=== PATIENT | female | born 1995 | race Caucasian/White ===

== ENCOUNTER 2016-03-10 08:51 | Observation (INO) | payer OTHER, MEDICAID ==
[2016-03-10] VITALS (7 sets, daily range): BP systolic 98–130; BP diastolic 64–85; PULSE 56–75; RESP 18–21; TEMP 96.9–98; O2SAT 95–99
[~2016-03-10] VITALS: Ht 160 cm; Wt 84.0 kg
[~2016-03-10 08:51] MED LIST: IBUP600 PO; OXYC1SOL5 PO; PERI8.6T PO
[2016-03-10] MEDS ORDERED: SODIUM CHLOR 0.9% 1000 ML INJ 1,000 ML IV SCH (09:06)
--- NOTE | 2016-03-10 09:09 | PD ---
HPI Chief Complaint: pelvic pain Time Seen by Provider: 09:00 Travel History International Travel<30 days: No Contact w/Intl Traveler<30days: No History of Present Illness HPI This is a 21-year-old female who presents to the emergency department with lower abdominal pain that's been present and worsening for the past 2 days, constant, severe feeling like a cramping in her lower abdomen. She said initially she felt some pain in her right thigh and then it's been progressing from the right side to involve her entire lower abdomen to the point where she cannot walk. She denies any nausea or vomiting. She has felt chills but denies any fever. She denies any dysuria, urgency, frequency, vaginal discharge or diarrhea. She did just recently have her menstrual cycle. She's had one sexual partner in the past 6 months. PFSH Past Medical History Diminished Hearing: No Immunizations Current: Yes Menopausal: Yes : 1 Para: 1 Past Surgical History Section: Yes (05/24/12) Social History Alcohol Use: No Tobacco Use: Yes Substance Use: No Allergies-Medications (Allergen,Severity, Reaction): Coded Allergies: No Known Allergies (Verified , 03/10/16) Reported Meds & Prescriptions Reported Meds & Active Scripts Active No Active Prescriptions or Reported Medications Review of Systems Except as stated in HPI: all other systems reviewed are Neg Physical Exam Narrative GENERAL: Uncomfortable appearing. SKIN: Warm and dry. HEAD: Atraumatic. Normocephalic. EYES: Pupils equal and round. No injection or drainage. ENT: Moist mucous membranes NECK: Trachea midline. CARDIOVASCULAR: Regular rate and rhythm. No murmur appreciated. RESPIRATORY: Clear to auscultation. Breath sounds equal bilaterally. GASTROINTESTINAL: Abdomen soft, tender to palpation in the lower abdomen with guarding, right worse than left. MUSCULOSKELETAL: No obvious deformities. NEUROLOGICAL: Awake and alert. No obvious cranial nerve deficits. Moving all extremities. PSYCHIATRIC: Appropriate mood and affect; insight and judgment normal. Data Data Last Documented VS Vital Signs Date Time Temp Pulse Resp B/P Pulse Ox O2 Delivery O2 Flow Rate FiO2 03/10/16 12:30 75 20 122/64 97 Room Air 03/10/16 08:54 97.8 Orders Complete Blood Count With Diff (03/10/16 09:06) Comprehensive Metabolic Panel (03/10/16 09:06) Lipase (03/10/16 09:06) Urinalysis - C+S If Indicated (03/10/16 09:06) Ct Abd/Pel W Iv Contrast(Rout) (03/10/16 09:06) Iv Access Insert/Monitor (03/10/16 09:06) Ecg Monitoring (03/10/16 09:06) Oximetry (03/10/16 09:06) Morphine Inj (Morphine Inj) (03/10/16 09:15) Sodium Chlor 0.9% 1000 Ml Inj (Ns 1000 M (03/10/16 09:06) Sodium Chloride 0.9% Flush (Ns Flush) (03/10/16 09:15) Ed Urine Pregnancytest Poc (03/10/16 09:06) Wet Prep Profile (03/10/16 09:19) Gc And Chlamydia Pcr (03/10/16 09:19) Ondansetron Inj (Zofran Inj) (03/10/16 09:32) Iohexol 350 Inj (Omnipaque 350 Inj) (03/10/16 10:03) Us Pelvis Comp W Dop Transvag (03/10/16 ) Hydromorphone Pf Inj (Dilaudid Pf Inj) (03/10/16 12:30) Labs Laboratory Tests Test 03/10/16 03/10/16 09:20 10:30 White Blood Count 10.4 TH/MM3 Red Blood Count 4.84 MIL/MM3 Hemoglobin 13.9 GM/DL Hematocrit 40.1 % Mean Corpuscular Volume 83.0 FL Mean Corpuscular Hemoglobin 28.7 PG Mean Corpuscular Hemoglobin 34.6 % Concent Red Cell Distribution Width 12.7 % Platelet Count 253 TH/MM3 Mean Platelet Volume 7.7 FL Neutrophils (%) (Auto) 68.7 % Lymphocytes (%) (Auto) 22.7 % Monocytes (%) (Auto) 6.4 % Eosinophils (%) (Auto) 1.5 % Basophils (%) (Auto) 0.7 % Neutrophils # (Auto) 7.1 TH/MM3 Lymphocytes # (Auto) 2.4 TH/MM3 Monocytes # (Auto) 0.7 TH/MM3 Eosinophils # (Auto) 0.2 TH/MM3 Basophils # (Auto) 0.1 TH/MM3 CBC Comment DIFF FINAL Differential Comment Urine Color YELLOW Urine Turbidity CLOUDY Urine pH 8.0 Urine Specific [place] 1.023 Urine Protein TRACE mg/dL Urine Glucose (UA) NEG mg/dL Urine Ketones NEG mg/dL Urine Occult Blood NEG Urine Nitrite NEG Urine Bilirubin NEG Urine Urobilinogen LESS THAN 2.0 MG/DL Urine Leukocyte Esterase TRACE Urine WBC 2 /hpf Urine Squamous Epithelial 6 /hpf Cells Urine Amorphous Sediment MOD Microscopic Urinalysis Comment CULT NOT INDICATED Sodium Level 138 MEQ/L Potassium Level 4.1 MEQ/L Chloride Level 105 MEQ/L Carbon Dioxide Level 25.2 MEQ/L Anion Gap 8 MEQ/L Blood Urea Nitrogen 9 MG/DL Creatinine 0.83 MG/DL Estimat Glomerular Filtration 85 ML/MIN Rate Random Glucose 98 MG/DL Calcium Level 8.9 MG/DL Total Bilirubin 0.4 MG/DL Aspartate Amino Transf 58 U/L (AST/SGOT) Alanine Aminotransferase 114 U/L (ALT/SGPT) Alkaline Phosphatase 109 U/L Total Protein 7.8 GM/DL Albumin 3.5 GM/DL Lipase 88 U/L Clue Cells (Wet Prep) NONE SEEN Vaginal Trichomonas (Wet Prep) NONE SEEN Vaginal Yeast (Wet Prep) NONE SEEN MDM Medical Decision Making Medical Screen Exam Complete: Yes Emergency Medical Condition: Yes Interpretation(s) Afebrile, no tachycardia, normotensive No leukocytosis Electrolytes reassuring Urinalysis: No infection Wet prep is negative CT abdomen and pelvis: Mild prominence of the appendix without inflammatory changes Differential Diagnosis Acute appendicitis, ovarian cyst rupture, pelvic inflammatory disease, ovarian torsion, urinary tract infection Narrative Course This is a 21-year-old female who presents to the emergency department with lower abdominal pain that started yesterday and has been progressing. She's not had any vomiting. She denies any fever. She is placed on a monitor and an IV was established. Labs are obtained which are reassuring with no leukocytosis. Urinalysis demonstrates no infection. Pelvic exam was unremarkable. Pelvic ultrasound demonstrates some flea fluid in the right adnexa. I suspect the patient had a ruptured ovarian cyst. I don't think she has appendicitis given the absence of other symptoms and her reassuring blood work. I did discuss the possibility with the patient and she if her symptoms worsen, if she develops vomiting or fever she should return to the emergency department immediately. Diagnosis Primary Impression: Pelvic pain Patient Instructions: General Instructions Additional Instructions: If you develop severe or worsening abdominal pain, fever>100.4, persistent vomiting or inability to eat or drink return to the emergency department immediately. Follow up with your primary care physician in 1-2 days for a check-up. Med/Other Pt SpecificInfo: Prescription(s) given Scripts Tramadol 50 Mg Tab50 Mg PO Q6H PRN (PAIN) 10 Days Ref 0 Prov:Kae Rossi MD 03/10/16 Disposition: 01 DISCHARGE HOME Condition: Stable Kae Rossi MD Mar 10, 2016 09:09
[2016-03-10] MEDS ORDERED: MORPHINE SULFATE 4 MG/ML INJ IV PUSH ONE (09:15)
[2016-03-10] MEDS ORDERED: SODIUM CHLORIDE 0.9% FLUSH 5 ML FLUSH IVF PRN (09:15)
[2016-03-10] MEDS ORDERED: ONDANSETRON HCL 4 MG/2 ML VIAL ONE (09:32)
[2016-03-10 09:37] LABS: AUTOMATED NEUTROPHIL # 7.1 TH/MM3 (1.8-7.7); BASOPHIL # 0.1 TH/MM3 (0-0.2); BASOPHIL % 0.7 % (0.0-2.0); EOSINOPHIL # 0.2 TH/MM3 (0-0.4); EOSINOPHIL % 1.5 % (0.0-4.0); HEMATOCRIT 40.1 % (35.0-46.0); HEMO FLAGS DIFF FINAL; LYMPH % 22.7 % (9.0-44.0); LYMPHOCYTE # 2.4 TH/MM3 (1.0-4.8); MEAN CORPUSCULAR HEMOGLOBIN 28.7 PG (27.0-34.0); MEAN CORPUSCULAR HGB CONC 34.6 % (32.0-36.0); MONO % 6.4 % (0.0-8.0); NEUT % 68.7 % (16.0-70.0); PLATELET COUNT 253 TH/MM3 (150-450); RED BLOOD COUNT 4.84 MIL/MM3 (4.00-5.30); RED CELL DISTRIBUTION WIDTH 12.7 % (11.6-17.2); WHITE BLOOD COUNT 10.4 TH/MM3 (4.0-11.0)
[2016-03-10 09:44] LABS: BLOOD, URINE NEG (NEG); GLUCOSE,URINE NEG (NEG); KETONE, URINE NEG (NEG); NITRITE,URINE NEG (NEG); SQUAMOUS EPITHELIAL CELL URINE 6 /hpf (0-5); URINE COLOR YELLOW (YELLW/STRAW)
[2016-03-10 09:45] LABS: COMMENT (UR) CULT NOT INDICATED; CULTURE IF INDICATED CULT NOT INDICATED
[2016-03-10 09:58] LABS: ANION GAP 8 MEQ/L (5-15); AST (GOT) 58 U/L (15-37); BICARBONATE 25.2 MEQ/L (21.0-32.0); BLOOD UREA NITROGEN 9 MG/DL (7-18); CHLORIDE 105 MEQ/L (98-107); GLOMERULAR FILTRATION RATE 85 ML/MIN (>89); POTASSIUM 4.1 MEQ/L (3.5-5.1); SODIUM (NA) 138 MEQ/L (136-145)
[2016-03-10 10:01] LABS: ALKALINE PHOSPHATASE 109 U/L (45-117); ALT (GPT) 114 U/L (10-53); TOTAL BILIRUBIN ADULT 0.4 MG/DL (0.2-1.0)
[2016-03-10] MEDS ORDERED: IOHEXOL 350 MG/ML 10 ML VIAL (for RAD DIAG) IV ONE (10:03)
--- NOTE | 2016-03-10 10:21 | RADRPT ---
EXAM DATE/TIME: 03/10/2016 10:01 [facility] COMPARISON: No previous studies available for comparison. INDICATIONS: Lower abdominal pain for two days, mostly right sided. IV CONTRAST: 85 cc Omnipaque 350 (iohexol) IV ORAL CONTRAST: No oral contrast ingested. RADIATION DOSE: 12.59 CTDIvol (mGy) MEDICAL HISTORY: None SURGICAL HISTORY: section. ENCOUNTER: Initial ACUITY: 2 days PAIN SCALE: 8/10 LOCATION: Right lower quadrant TECHNIQUE: Volumetric scanning of the abdomen and pelvis was performed. Using automated exposure control and ad justment of the mA and/or kV according to patient size, radiation dose was kept as low as reasonably achievable to obtain optimal diagnostic quality images. FINDINGS: Lung bases are clear. Liver is free of focal defects. Spleen, pancreas, adrenals and gallbladder ar e unremarkable. There is symmetrical renal function. In the region of the cecum the appendix is identified. There is very mild prominence to the appendix measuring 8 mm without obvious inflammatory changes evident. Uterus is prominent. Small cystic areas are seen in both adnexal regions. There is no free fluid. CONCLUSION: 1. Mild prominence of the appendix without inflammatory changes. Appendicitis is thought to be less likely. 2. I do not see an etiology for the patient's abdominal pain. Wali Cancino MD FACR on March 10, 2016 at 10:10 Board Certified Radiologist. This report was verified electronically.
--- NOTE | 2016-03-10 12:29 | RADRPT ---
EXAM DATE/TIME: 03/10/2016 10:51 [facility] COMPARISON: None. INDICATIONS : Pelvic pain. MEDICAL HISTORY : Pelvic pain. SURGICAL HISTORY : section. ENCOUNTER: Subsequent ACUITY: 2 days PAIN SCORE: 5/10 LOCATION: Bilateral pelvis MEASUREMENTS: UTERUS: 7.4 x 3.5 x 5.3 cm ENDOMETRIAL STRIPE: 4 mm RIGHT OVARY: 3.4 x 2.0 x 3.0 cm LEFT OVARY: 3.2 x 2.8 x 2.3 cm FINDINGS: UTERUS: The myometrium has homogeneous echotexture without mass. RIGHT OVARY: Ovary contains no mass or significant cystic lesion. A benign-appearing 9 x 6 x 8 mm follicular type cyst identified. LEFT OVARY: Ovary contains no mass or significant cystic lesion. MISCELLANEOUS: Free fluid predominantly in the right adnexal region. CONCLUSION: 1. Physiologic free fluid predominantly in the right adnexal region. 2. Otherwise negative. Javi Winston MD Board Certified Radiologist. This report was verified electronically.
[2016-03-10] MEDS ORDERED: HYDROmorphone HCL PF 1 MG/ML VIAL IV PUSH ONE ×3 (12:30→15:30)
[2016-03-10] MEDS ORDERED: TRAM50TA PO (12:38)
[2016-03-10 13:24] LABS: CHLAMYDIA PCR NOT DETECTED (NOT DETECT); NEISSERIA PCR NOT DETECTED (NOT DETECT)
--- NOTE | 2016-03-10 14:39 | HHI.HP ---
[facility] Service Family Medicine Primary Care Physician No Primary Care Physician Admission Diagnosis abdominal pain Diagnoses: International Travel<30 Days: No Contact w/Intl Traveler<30days: No Known Affected Area: No History of Present Illness Patient is a 21yo female who presented here today for lower abdominal pain. Symptoms started yesterday morning on her inner thighs and felt like soreness that then progressed to lower abdominal pain that was sharp. Worsened with movement and associated with pressure. She has never experience an episode like this. Pain is always present. No associated nausea/vomiting, fever/chills , dysuria, dyspareunia, vaginal discharge, vaginal bleeding, vaginal itchiness. Denies a concern for STD. She does endorse feeling hungry. Review of Systems Constitutional: DENIES: Fever, Chills, Change in appetite Ears, nose, mouth, throat: DENIES: Throat pain, Running Nose Respiratory: DENIES: Sputum production, Shortness of breath Cardiovascular: DENIES: Chest pain, Palpitations, Dyspnea on Exertion, Lower Extremity Edema Gastrointestinal: COMPLAINS OF: Abdominal pain, DENIES: Diarrhea, Nausea, Vomiting Genitourinary: DENIES: Abnormal vaginal bleeding, Dysmenorrhea, Hematuria, Dysuria, Vaginal discharge Musculoskeletal: DENIES: Joint Swelling Integumentary: DENIES: Rash Neurologic: DENIES: Headache, Localized weakness Past Family Social History Past Medical History Toothache, currently on amoxicillin Past Surgical History 2 Reported Medications Reported Meds & Active Scripts Active Tramadol (Tramadol HCl) 50 Mg Tab 50 Mg PO Q6H PRN 10 Days Allergies: Coded Allergies: No Known Allergies (Verified , 03/10/16) Family History Mother: from cirrhosis Father: Unknown Sister and grandmother with diabetes Social History Lives with daughter and boyfriend Tobacco: Half pack per day 10 years Alcohol: Socially, no history of withdrawal Illicit: Marijuana since age 13 or 14 Physical Exam Vital Signs Vital Signs Date Time Temp Pulse Resp B/P Pulse Ox O2 Delivery O2 Flow Rate FiO2 03/10/16 12:30 75 20 122/64 97 Room Air 03/10/16 09:40 58 20 98 Room Air 03/10/16 08:54 97.8 74 20 114/85 95 Room Air Physical Exam GENERAL: This is a well-nourished, well-developed patient, in no apparent distress. SKIN: No rashes, ecchymoses or lesions. Cool and dry. EYES: Pupils equal round and reactive. Extraocular motions intact. No scleral icterus. No injection or drainage. ENT: Nose without bleeding, purulent drainage. Throat without erythema, tonsillar hypertrophy or exudate. Uvula midline. Airway patent. NECK: No lymphadenopathy. Supple, nontender, no meningeal signs. CARDIOVASCULAR: Regular rate and rhythm without murmurs, gallops, or rubs. RESPIRATORY: Late expiratory wheezes bilaterally. Good air movement bilaterally. No rubs or crackles. GASTROINTESTINAL: Abdomen soft, nondistended. Suprapubic tenderness. No rebound tenderness. Gómez's sign negative. No hepato-splenomegaly, or palpable masses. No guarding. MUSCULOSKELETAL: Extremities without clubbing, cyanosis, or edema. No joint tenderness, effusion, or edema noted. No calf tenderness. NEUROLOGICAL: Awake and alert. Motor and sensory grossly within normal limits. Five out of 5 muscle strength in all muscle groups. Normal speech. Laboratory Laboratory Tests Test 03/10/16 03/10/16 09:20 10:30 White Blood Count 10.4 Red Blood Count 4.84 Hemoglobin 13.9 Hematocrit 40.1 Mean Corpuscular Volume 83.0 Mean Corpuscular Hemoglobin 28.7 Mean Corpuscular Hemoglobin 34.6 Concent Red Cell Distribution Width 12.7 Platelet Count 253 Mean Platelet Volume 7.7 Neutrophils (%) (Auto) 68.7 Lymphocytes (%) (Auto) 22.7 Monocytes (%) (Auto) 6.4 Eosinophils (%) (Auto) 1.5 Basophils (%) (Auto) 0.7 Neutrophils # (Auto) 7.1 Lymphocytes # (Auto) 2.4 Monocytes # (Auto) 0.7 Eosinophils # (Auto) 0.2 Basophils # (Auto) 0.1 CBC Comment DIFF FINAL Differential Comment Urine Color YELLOW Urine Turbidity CLOUDY Urine pH 8.0 Urine Specific [place] 1.023 Urine Protein TRACE Urine Glucose (UA) NEG Urine Ketones NEG Urine Occult Blood NEG Urine Nitrite NEG Urine Bilirubin NEG Urine Urobilinogen LESS THAN 2.0 Urine Leukocyte Esterase TRACE Urine WBC 2 Urine Squamous Epithelial 6 Cells Urine Amorphous Sediment MOD Microscopic Urinalysis Comment CULT NOT INDICATED Sodium Level 138 Potassium Level 4.1 Chloride Level 105 Carbon Dioxide Level 25.2 Anion Gap 8 Blood Urea Nitrogen 9 Creatinine 0.83 Estimat Glomerular Filtration 85 Rate Random Glucose 98 Calcium Level 8.9 Total Bilirubin 0.4 Aspartate Amino Transf 58 (AST/SGOT) Alanine Aminotransferase 114 (ALT/SGPT) Alkaline Phosphatase 109 Total Protein 7.8 Albumin 3.5 Lipase 88 Clue Cells (Wet Prep) NONE SEEN Vaginal Trichomonas (Wet Prep) NONE SEEN Vaginal Yeast (Wet Prep) NONE SEEN Chlamydia trachomatis DNA NOT DETECTED (PCR) Neisseria gonorrhoeae DNA NOT DETECTED (PCR) Result Diagram: 03/10/1691903/10/16919 Imaging Last Impressions Abdomen/Pelvis CT 03/10/16 0906 Signed Impressions: Service Date/Time: Thursday, March 10, 2016 10:01 - CONCLUSION: 1. Mild prominence of the appendix without inflammatory changes. Appendicitis is thought to be less likely. 2. I do not see an etiology for the patient's abdominal pain. Wali Cancino MD FACR Abdomen/Pelvis/Transvag US 03/10/16 0000 Signed Impressions: Service Date/Time: Thursday, March 10, 2016 10:51 - CONCLUSION: 1. Physiologic free fluid predominantly in the right adnexal region. 2. Otherwise negative. Javi Winston MD Assessment and Plan Assessment and Plan 21yo female with no significant PMH admitted for uncontrolled abdominal pain. Code Status full Discussed Condition With dw Dr. Swenson and Dr. Zaman Problem List: (1) Abdominal pain Status: Acute Plan: Acute onset suprapubic abdominal pain that has progressively worsened since yesterday. Not associated with any other symptoms. Vital signs reassuring and patient afebrile. No leukocytosis present. Etiology unclear but appears to be benign at this time. DDX includes ruptured cyst vs appendicitis vs PID vs cholecystitis vs pancreatitis -CBC, UA, GC and Chlamydia, wet prep negative -CMP unremarkable with exception of a slightly elevated liver enzymes. * repeat CMP Surgery consulted: appreciate recommendations. * closely monitor. No surgical intervention at this time Imaging: * Pelvic US: Physiologic free fluid predominantly in the right adnexal region. Otherwise negative * Abdominal CT: Mild prominence of the appendix without inflammatory changes. Appendicitis is thought to be less likely. No clear etiology of abdominal pain. Medications: * Dilaudid 0.5mg IV q3 breakthrough stopped and switched to Toradol * [place] 5's * Protonix in case abdominal pain is related to indigestion (2) Nutrition, metabolism, and development symptoms Status: Acute Plan: Diet: Clear liquids Electrolytes: Unremarkable, continue to monitor Fluids: NS at 100 DVT prophylaxis: SCDs as patient may go back for surgery GI prophylaxis: Protonix Kika Sweeney MD R2 Mar 10, 2016 14:39
[2016-03-10] MEDS ORDERED: ENALAPRILAT 1.25 MG/ML VIAL IV PRN (15:30)
[2016-03-10] MEDS ORDERED: SODIUM CHLORIDE 0.9% FLUSH 5 ML FLUSH FLUSH PRN (15:30)
[2016-03-10] MEDS ORDERED: NALOXONE HCL 0.4 MG/ML AMP IV PRN ×2 (15:30)
[2016-03-10] MEDS ORDERED: ACETAMINOPHEN 325 MG TAB PO PRN (15:30)
[2016-03-10] MEDS ORDERED: ACETAMINOPHEN/HYDROcodone 325 MG/5 MG TAB PO PRN (15:30)
[2016-03-10] MEDS: SODIUM CHLOR 0.9% 1000 ML INJ 1,000 ML IV SCH (15:43)
[2016-03-10] MEDS ORDERED: ONDANSETRON HCL 4 MG/2 ML VIAL IVP PRN (16:00)
[2016-03-10] MEDS: ACETAMINOPHEN/HYDROcodone 325 MG/10 MG TAB PO PRN ×2 (18:14→23:11)
[2016-03-10] MEDS: SODIUM CHLORIDE 0.9% FLUSH 5 ML FLUSH FLUSH SCH (20:28)
[2016-03-10] MEDS: HYDROmorphone HCL PF 1 MG/ML VIAL IV PRN (20:37)
[2016-03-11 00:03] VITALS: BP 106/66; PULSE 67; RESP 18; TEMP 98.7; O2SAT 97
[2016-03-11] MEDS: SODIUM CHLOR 0.9% 1000 ML INJ 1,000 ML IV SCH ×3 (01:30→22:25)
[2016-03-11] MEDS: ACETAMINOPHEN/HYDROcodone 325 MG/10 MG TAB PO PRN (02:50)
[2016-03-11 04:30] VITALS: BP 111/66; PULSE 53; RESP 18; TEMP 98; O2SAT 97
[2016-03-11 04:40] LABS: BASOPHIL % 0.4 % (0.0-2.0); EOSINOPHIL # 0.2 TH/MM3 (0-0.4); EOSINOPHIL % 2.2 % (0.0-4.0); HEMATOCRIT 35.3 % (35.0-46.0); HEMO FLAGS DIFF FINAL; LYMPH % 39.8 % (9.0-44.0); LYMPHOCYTE # 3.2 TH/MM3 (1.0-4.8); MEAN CORPUSCULAR HEMOGLOBIN 28.6 PG (27.0-34.0); MONO % 8.6 % (0.0-8.0); PLATELET COUNT 212 TH/MM3 (150-450); RED CELL DISTRIBUTION WIDTH 13.1 % (11.6-17.2); WHITE BLOOD COUNT 8.1 TH/MM3 (4.0-11.0)
[2016-03-11] MEDS: HYDROmorphone HCL PF 1 MG/ML VIAL IV PRN (04:46)
[2016-03-11 05:18] LABS: BICARBONATE 29.6 MEQ/L (21.0-32.0)
[2016-03-11 07:24] LABS: INDIRECT BILIRUBIN 0.2 MG/DL (0.0-0.8); TOTAL BILIRUBIN ADULT 0.3 MG/DL (0.2-1.0)
[2016-03-11] MEDS: SODIUM CHLORIDE 0.9% FLUSH 5 ML FLUSH FLUSH SCH ×2 (08:09→22:25)
--- NOTE | 2016-03-11 08:18 | HHI.FPPN ---
Subjective Remarks Patient seen and examined this am. She is tolerating her diet, wants it to be advanced. She reports some improvement in abd pain. Denies N/V. Ambulatory without issues. Objective Vitals Vital Signs Date Time Temp Pulse Resp B/P Pulse Ox O2 Delivery O2 Flow Rate FiO2 03/11/16 04:30 98.0 53 18 111/66 97 03/11/16 03:50 16 03/11/16 00:03 98.7 67 18 106/66 97 03/10/16 21:50 14 03/10/16 20:52 98.0 60 21 98/65 95 03/10/16 17:25 96.9 60 18 130/73 97 03/10/16 17:10 62 20 114/71 98 03/10/16 15:20 56 20 113/80 99 Room Air 03/10/16 12:30 75 20 122/64 97 Room Air 03/10/16 09:40 58 20 98 Room Air 03/10/16 08:54 97.8 74 20 114/85 95 Room Air I/O 03/10/16 03/10/16 03/10/16 03/11/16 03/11/16 03/11/16 07:00 15:00 23:00 07:00 15:00 23:00 Intake Total 240 ml Balance 240 ml Intake Oral 240 ml # Voids 2 Result Diagram: 03/11/16 0416 03/11/16 0416 Imaging Last Impressions Abdomen/Pelvis CT 03/10/16 0906 Signed Impressions: Service Date/Time: Thursday, March 10, 2016 10:01 - CONCLUSION: 1. Mild prominence of the appendix without inflammatory changes. Appendicitis is thought to be less likely. 2. I do not see an etiology for the patient's abdominal pain. Wali Cancino MD FACR Abdomen/Pelvis/Transvag US 03/10/16 0000 Signed Impressions: Service Date/Time: Thursday, March 10, 2016 10:51 - CONCLUSION: 1. Physiologic free fluid predominantly in the right adnexal region. 2. Otherwise negative. Javi Winston MD Objective Remarks GENERAL: This is a well-nourished, well-developed patient, in no apparent distress. SKIN: No rashes, ecchymoses or lesions. Cool and dry. EYES: Pupils equal round and reactive. Extraocular motions intact. No scleral icterus. No injection or drainage. ENT: Nose without bleeding, purulent drainage. Throat without erythema, tonsillar hypertrophy or exudate. Uvula midline. Airway patent. NECK: No lymphadenopathy. Supple, nontender, no meningeal signs. CARDIOVASCULAR: Regular rate and rhythm without murmurs, gallops, or rubs. RESPIRATORY: Good air movement bilaterally. No rubs or crackles. GASTROINTESTINAL: Abdomen soft, nondistended. Suprapubic tenderness. that is pretty significant but appears unchanged from yesterday. No rebound tenderness. Gómez's sign negative. No hepato-splenomegaly, or palpable masses. No guarding. PELVIC: no vaginal abnormalities seen, cervix visualized, it is non friable and normal in appearance. There is a significant amount of non odorous discharge. There is no cervical motion or uterine tenderness. There does appear to be some adnexal tenderness bilat, left worse than right MUSCULOSKELETAL: Extremities without clubbing, cyanosis, or edema. No joint tenderness, effusion, or edema noted. No calf tenderness. NEUROLOGICAL: Awake and alert. Motor and sensory grossly within normal limits. Five out of 5 muscle strength in all muscle groups. Normal speech. Pelvic Exam: A/P Assessment and Plan 21yo female with no significant PMH admitted for uncontrolled abdominal pain. Discharge Planning D/C pending clinical improvement Patient seen with Dr. Swenson, Dr. Chang, Dr. Zaman Problem List: (1) Abdominal pain Status: Acute Plan: Acute onset suprapubic abdominal pain that is essentially unchanged from yesterday. DDX includes ruptured cyst vs appendicitis vs PID vs cholecystitis vs pancreatitis -PID now higher on the differential. Exam was concerning for some adenexal tenderness. The patients RF for PID include <25yo, significant discharge, onset shortly after menses. Will treat accordingly -UA negative, GC and Chlamydia negative, wet prep negative -CMP unremarkable with exception of a slightly elevated liver enzymes. * repeat CMP improved Surgery consulted: appreciate recommendations. * closely monitor. No surgical intervention at this time Imaging: * Pelvic US: Physiologic free fluid predominantly in the right adnexal region. Otherwise negative * Abdominal CT: Mild prominence of the appendix without inflammatory changes. Appendicitis is thought to be less likely. No clear etiology of abdominal pain. Medications: * Cefotoxitin 2 g IV q6 hrs, doxycycline 100 mg PO BID * Toradol * [place] 5's * Protonix in case abdominal pain is related to indigestion (2) Nutrition, metabolism, and development symptoms Status: Acute Plan: Diet: regular diet as tolerated Electrolytes: Unremarkable, continue to monitor Fluids: NS at 100 DVT prophylaxis: SCDs GI prophylaxis: not indicated at this time Lashon Rizvi MD R3 Mar 11, 2016 08:18
[2016-03-11 08:22] VITALS: BP 122/73; PULSE 48; RESP 18; TEMP 97.1; O2SAT 96
--- NOTE | 2016-03-11 08:23 | HHI.DCPOC ---
Discharge Care Plan Diagnosis: (1) Pelvic pain Goals to Promote Your Health * To prevent worsening of your condition and complications * To maintain your health at the optimal level Directions to Meet Your Goals Take your medications as prescribed Follow your dietary instruction Follow activity as directed Keep your appointments as scheduled Take your immunizations and boosters as scheduled If your symptoms worsen call your PCP, if no PCP go to Urgent Care Center or Emergency Room Smoking is Dangerous to Your Health. Avoid second hand smoke Call the 24-hour hour crisis hotline for domestic abuse at Lashon Rizvi MD R3 Mar 11, 2016 08:23
[2016-03-11] MEDS: NICOTINE 14 MG/24 HR PATCH TD SCH (08:36)
[2016-03-11] MEDS: KETOROLAC TROMETHAMINE 30 MG/ML (IVP) VIAL IV PUSH PRN ×3 (08:36→22:25)
[2016-03-11] MEDS ORDERED: PANTOPRAZOLE SOD 40 MG DELAYED RELEASE TAB PO SCH (09:00)
--- NOTE | 2016-03-11 10:19 | MB ---
cc: ANALISABLAKEPAULINO DATE OF CONSULTATION 03/10/[address] Jah Swenson REASON FOR CONSULTATION Abdominal pain, rule out appendicitis. HISTORY OF PRESENT ILLNESS Patient is a 21-year-old female who two days ago experienced a relatively quick onset of pelvic pain felt kind of on the inner side of both upper thighs that got worse severely over the next 24 hours. The patient had severe 10/10 pain, although denied any nausea, vomiting, diarrhea, constipation, fevers, chills, night sweats or any other associated complaints. The pain is described as a band across her lower abdomen and her pelvis without radiation and constant pain. The patient was seen and evaluated by [facility] emergency department and was found to likely have a ruptured ovarian cyst. Transvaginal ultrasound, however, and a CT scan of the abdomen and pelvis was also performed and the appendix was found to be within normal limits, but the upper limits of normal. General surgery was asked to see the patient for consideration of possible appendicitis. REVIEW OF SYSTEMS A 12-point review of systems was conducted with the patient and is negative except for the pertinent positives mentioned above in the history present illness. PAST MEDICAL HISTORY None PAST SURGICAL HISTORY ALLERGIES NO KNOWN DRUG ALLERGIES. MEDICATIONS None SOCIAL HISTORY The patient uses tobacco. Denies alcohol or illicit drug use. FAMILY HISTORY Noncontributory PHYSICAL EXAM VITAL SIGNS: Temperature 96.9, heart rate 60, respiratory rate 18, blood pressure 130/73, O2 saturation 97%. GENERAL: The patient is a well-developed, well-nourished female in no acute distress. HEAD: Normocephalic, atraumatic. EYES: Pupils round and reactive to accommodation and light. Sclerae is anicteric. EARS, NOSE, AND THROAT: Mucous membranes are moist. NECK: Supple. No JVD. LUNGS: Clear to auscultation bilaterally. Nonlabored breathing pattern. HEART: Regular rhythm. No murmurs. ABDOMEN: Soft, tender to palpation bilateral lower quadrants and suprapubic area with no focal tenderness. The patient is not tender over McBurney's point. The patient does have pain more with left leg manipulation than right leg manipulation. No right upper quadrant pain. Negative Gómez sign. No hernias. BACK: No CVA tenderness. EXTREMITIES: No clubbing, cyanosis or edema. NEUROLOGIC: Patient is awake, alert appropriate moving all extremities nonfocally and cranial nerves II-XII are grossly intact. LABORATORY VALUES White blood cell count 10.0, hemoglobin 13.9. ASSESSMENT/PLAN The patient is a 21-year-old female with two days of severe pelvic pain, suprapubic on the left side with CT scan of the appendix upper limits of normal with no associated inflammation and a normal white blood cell count. In my clinical opinion, the patient is very unlikely to have acute appendicitis and due to her severe pain with no other symptoms and her relatively normal appendix on a scan, this likely represents blood for a ruptured cyst which would present exactly like this. I do think it is reasonable for admission and observation and serial abdominal examinations and if the patient were to develop a clinical presentation more concerning for infection or appendicitis, I would recommend diagnostic lap, fluoroscopy and appendectomy at that time. The patient agrees to this plan and we will follow along with this patient. Thank you very much this consultation. MD ABDULAZIZ Gamez/SHANNEN /8:18 PM /10:03 AM
[2016-03-11 12:37] VITALS: BP 161/102; PULSE 55; RESP 18; TEMP 97.8; O2SAT 95
--- NOTE | 2016-03-11 12:42 | HHI.PR ---
Subjective Subjective Notes Resting in bed Wants regular food Objective Vitals/I&O Vital Signs Date Time Temp Pulse Resp B/P Pulse Ox O2 Delivery O2 Flow Rate FiO2 03/11/16 12:37 97.8 55 18 161/102 95 03/10/16 15:20 Room Air Labs Laboratory Tests Test 03/11/16 04:16 White Blood Count 8.1 Red Blood Count 4.20 Hemoglobin 12.0 Hematocrit 35.3 Mean Corpuscular Volume 84.0 Mean Corpuscular Hemoglobin 28.6 Mean Corpuscular Hemoglobin 34.0 Concent Red Cell Distribution Width 13.1 Platelet Count 212 Mean Platelet Volume 7.7 Neutrophils (%) (Auto) 49.0 Lymphocytes (%) (Auto) 39.8 Monocytes (%) (Auto) 8.6 Eosinophils (%) (Auto) 2.2 Basophils (%) (Auto) 0.4 Neutrophils # (Auto) 4.0 Lymphocytes # (Auto) 3.2 Monocytes # (Auto) 0.7 Eosinophils # (Auto) 0.2 Basophils # (Auto) 0.0 CBC Comment DIFF FINAL Differential Comment Sodium Level 142 Potassium Level 4.0 Chloride Level 107 Carbon Dioxide Level 29.6 Anion Gap 5 Blood Urea Nitrogen 6 Creatinine 0.64 Estimat Glomerular Filtration 115 Rate Random Glucose 101 Calcium Level 7.9 Total Bilirubin 0.3 Direct Bilirubin 0.1 Indirect Bilirubin 0.2 Aspartate Amino Transf 32 (AST/SGOT) Alanine Aminotransferase 77 (ALT/SGPT) Alkaline Phosphatase 86 Total Protein 6.3 Albumin 2.8 Cardiovascular: Regular Lungs: Clear Abdomen: Other (LLQ tenderness with palpation ) Extremities: No edema A/P Assessment and Plan 21 year old female with abdominal pain; ?? etiology; unlikely appendicitis -Advance to regular diet -Agree with trial of antibiotics -No acute surgical interventions planned -If tolerates regular diet and PO antibiotics and pain controlled on PO pain meds okay to [place] home Attending Statement The exam, history, and the medical decision-making described in the above note were completed with the assistance of the mid-level provider. I reviewed and agree with the findings presented. I attest that I had a [id number] encounter with the patient on the same day, and personally performed and documented my assessment and findings in the medical record. Abdominal exam TTP LLQ, no tenderness over McBurney's point clinically patient does not have appendicitis, ok for regular diet, ok with antibiotics will follow while patient is here Naila Garcia Mar 11, 2016 12:42 Bryan Erickson MD Mar 11, 2016 16:17
--- NOTE | 2016-03-11 13:08 | HHI.FPPN ---
Subjective Remarks Attending note pleasant 21-year-old woman seen with the resident team for evaluation of lower abdominal pain. History was obtained and reveals over the last 2-3 days of suprapubic discomfort that came on somewhat gradually, no acute event. Last menstrual period approximately 10 days ago, no prior history of ruptured ovarian cyst, no prior history of PID. Review of systems is otherwise nonlocalizing. Please refer to the complete history and physical for complete discussion of details to include past medical history, family history social history and review of systems. At the present time the patient states she is able to eat, or bowel complaints. Not on control pills. Objective Vitals Vital Signs Date Time Temp Pulse Resp B/P Pulse Ox O2 Delivery O2 Flow Rate FiO2 03/11/16 12:37 97.8 55 18 161/102 95 03/11/16 08:22 97.1 48 18 122/73 96 03/11/16 04:30 98.0 53 18 111/66 97 03/11/16 03:50 16 03/11/16 00:03 98.7 67 18 106/66 97 03/10/16 21:50 14 03/10/16 20:52 98.0 60 21 98/65 95 03/10/16 17:25 96.9 60 18 130/73 97 03/10/16 17:10 62 20 114/71 98 03/10/16 15:20 56 20 113/80 99 Room Air I/O 03/10/16 03/10/16 03/10/16 03/11/16 03/11/16 03/11/16 07:00 15:00 23:00 07:00 15:00 23:00 Intake Total 240 ml Balance 240 ml Intake Oral 240 ml # Voids 2 Result Diagram: 03/11/16 0416 03/11/16 0416 Objective Remarks Vital signs noted. Afebrile. Gen. appearance: Young woman pleasant in conversation, complaining of suprapubic pain. Lungs: Clear to auscultation. Cardiac: S1-S2, no S3 or murmurs. Abdomen: Appearance unremarkable, active bowel sounds, distinct and marked tenderness on palpation of the left right and suprapubic lower abdominal areas. ? Slight rebound. No organomegaly, upper abdomen benign. Extremities: Feet are warm and dry, intact pedal pulses, no ankle edema. Please refer to present exam. Complete discussion details. A/P Assessment and Plan Clinical assessment: 21-year-old woman admitted for abdominal pain. Physical exam is revealing for definite inflammatory process. Differential diagnosis to include PID, subacute appendicitis, ruptured ovarian cyst. As noted, patient was seen and examined. Case was reviewed and discussed with resident team. Agree with plan as discussed with me and documented in the resident note. Problem List: (1) Abdominal pain Status: Acute Plan: Acute onset suprapubic abdominal pain that has progressively worsened since yesterday. Not associated with any other symptoms. Vital signs reassuring and patient afebrile. No leukocytosis present. Etiology unclear but appears to be benign at this time. DDX includes ruptured cyst vs appendicitis vs PID vs cholecystitis vs pancreatitis -CBC, UA, GC and Chlamydia, wet prep negative -CMP unremarkable with exception of a slightly elevated liver enzymes. * repeat CMP Surgery consulted: appreciate recommendations. * closely monitor. No surgical intervention at this time Imaging: * Pelvic US: Physiologic free fluid predominantly in the right adnexal region. Otherwise negative * Abdominal CT: Mild prominence of the appendix without inflammatory changes. Appendicitis is thought to be less likely. No clear etiology of abdominal pain. Medications: * Dilaudid 0.5mg IV q3 breakthrough stopped and switched to Toradol * [place] 5's * Protonix in case abdominal pain is related to indigestion (2) Nutrition, metabolism, and development symptoms Status: Acute Plan: Diet: Clear liquids Electrolytes: Unremarkable, continue to monitor Fluids: NS at 100 DVT prophylaxis: SCDs as patient may go back for surgery GI prophylaxis: Protonix Jah Swenson MD Mar 11, 2016 13:08
[2016-03-11] MEDS: DOXYCYCLINE HYCLATE 100 MG CAP PO SCH ×2 (18:09→22:25)
[2016-03-11] MEDS: ceFOXitin INJ 2 GM in SODIUM CHLORIDE 0.9% INJ 100 ML IV SCH ×2 (18:10→22:25)
[2016-03-11 22:23] VITALS: BP 145/91; PULSE 87; RESP 18; TEMP 97.8; O2SAT 98
[2016-03-12 02:22] VITALS: BP 124/67; PULSE 68; RESP 18; TEMP 98.8; O2SAT 98
[2016-03-12 05:00] VITALS: BP 127/76; PULSE 65; RESP 18; TEMP 98.8; O2SAT 98
[2016-03-12] MEDS: ceFOXitin INJ 2 GM in SODIUM CHLORIDE 0.9% INJ 100 ML IV SCH ×2 (05:20→11:04)
[2016-03-12 05:27] LABS: AUTOMATED NEUTROPHIL # 5.5 TH/MM3 (1.8-7.7); BASOPHIL % 0.4 % (0.0-2.0); EOSINOPHIL # 0.1 TH/MM3 (0-0.4); EOSINOPHIL % 1.2 % (0.0-4.0); HEMATOCRIT 36.3 % (35.0-46.0); HEMO FLAGS DIFF FINAL; LYMPHOCYTE # 2.9 TH/MM3 (1.0-4.8); MEAN CELL VOLUME 82.8 FL (80.0-100.0); MEAN CORPUSCULAR HEMOGLOBIN 29.3 PG (27.0-34.0); MEAN CORPUSCULAR HGB CONC 35.4 % (32.0-36.0); MONO % 7.8 % (0.0-8.0); NEUT % 59.6 % (16.0-70.0); PLATELET COUNT 251 TH/MM3 (150-450); RED BLOOD COUNT 4.39 MIL/MM3 (4.00-5.30); RED CELL DISTRIBUTION WIDTH 12.8 % (11.6-17.2); WHITE BLOOD COUNT 9.2 TH/MM3 (4.0-11.0)
[2016-03-12 05:54] LABS: ALKALINE PHOSPHATASE 113 U/L (45-117); ALT (GPT) 82 U/L (10-53); ANION GAP 9 MEQ/L (5-15); AST (GOT) 49 U/L (15-37); BICARBONATE 25.5 MEQ/L (21.0-32.0); BLOOD UREA NITROGEN 3 MG/DL (7-18); CHLORIDE 108 MEQ/L (98-107); GLOMERULAR FILTRATION RATE 93 ML/MIN (>89); POTASSIUM 4.1 MEQ/L (3.5-5.1); SODIUM (NA) 142 MEQ/L (136-145); TOTAL BILIRUBIN ADULT 0.6 MG/DL (0.2-1.0)
[2016-03-12] MEDS: SODIUM CHLOR 0.9% 1000 ML INJ 1,000 ML IV SCH (07:30)
[2016-03-12 08:00] VITALS: BP 144/89; PULSE 48; RESP 16; TEMP 98; O2SAT 99
[2016-03-12] MEDS: SODIUM CHLORIDE 0.9% FLUSH 5 ML FLUSH FLUSH SCH (09:00)
[2016-03-12] MEDS: DOXYCYCLINE HYCLATE 100 MG CAP PO SCH (09:36)
[2016-03-12] MEDS: NICOTINE 14 MG/24 HR PATCH TD SCH (09:37)
[2016-03-12] MEDS ORDERED: METR500T10 PO (10:29)
[2016-03-12] MEDS ORDERED: DOXY100C PO (10:29)
--- NOTE | 2016-03-12 10:48 | HHI.FPPN ---
Subjective Remarks No acute events overnight. Vital signs unremarkable except for intermittent episodes of elevated BP. This morning patient reports that she feels much better. Her pain has drastically improved and has been moving around more. Patient requested to be discharged today. (Kika Sweeney MD R2) Objective Vitals Vital Signs Date Time Temp Pulse Resp B/P Pulse Ox O2 Delivery O2 Flow Rate FiO2 03/12/16 08:00 98.0 48 16 144/89 99 03/12/16 05:00 98.8 65 18 127/76 98 03/12/16 02:22 98.8 68 18 124/67 98 03/11/16 23:36 14 03/11/16 22:23 97.8 87 18 145/91 98 03/11/16 12:37 97.8 55 18 161/102 95 I/O 03/11/16 03/11/16 03/11/16 03/12/16 03/12/16 03/12/16 07:00 15:00 23:00 07:00 15:00 23:00 Intake Total 480 ml Balance 480 ml Intake Oral 480 ml # Voids 2 # Bowel Movements 1 (Kika Sweeney MD R2) Result Diagram: 03/12/1644803/12/16448 Objective Remarks GEN: Well-developed, well-nourished patient. No acute distress. CV: Regular rate and rhythm without obvious murmurs LUNGS: Clear to auscultation bilaterally. Normal respiratory effort. No wheezes , rales, rhonchi. GI: Soft, very mild suprapubic tenderness. No guarding or rebound tenderness. Nondistended. No palpable masses. EXT: No edema. No calf tenderness. NEURO/PSYCH: Awake, alert. Appropriate insight and judgment. Normal speech ( Kika Sweeney MD R2) A/P Assessment and Plan Clinical assessment: 21-year-old woman admitted for abdominal pain. Physical exam is revealing for definite inflammatory process. Differential diagnosis to include PID, subacute appendicitis, ruptured ovarian cyst. As noted, patient was seen and examined. Case was reviewed and discussed with resident team. Agree with plan as discussed with me and documented in the resident note. Discharge Planning Today Patient seen with Dr. Swenson, Dr. Zaman (Kika Sweeney MD R2) Assessment and Plan 03/12/16: Attending note: Patient was seen and examined with resident team. Case reviewed and discussed with resident team. Agree with plan of care as discharged with me and documented in the resident's note, patient being discharged on the morning of 03/12/16. (Jah Swenson MD) Problem List: (1) PID (acute pelvic inflammatory disease) Status: Acute Plan: Acute onset suprapubic abdominal pain that has significantly improved since admission with the addition of antibiotic treatment. Symptoms likely due to PID rather than appendicitis or ruptured cyst. There was some slight adnexal tenderness but no cervical motion tenderness. -UA negative, GC and Chlamydia negative, wet prep negative -CMP unremarkable with exception of a slightly elevated liver enzymes. * repeat CMP improved Surgery consulted: appreciate recommendations. * closely monitor. No surgical intervention at this time Imaging: * Pelvic US: Physiologic free fluid predominantly in the right adnexal region. Otherwise negative * Abdominal CT: Mild prominence of the appendix without inflammatory changes. Appendicitis is thought to be less likely. No clear etiology of abdominal pain. Medications: * Cefotoxitin 2 g IV q6 hrs, doxycycline 100 mg PO BID, will discharge on metronidazole and doxycycline. (Counseled about medication side effects) * Toradol * [place] 5's (2) Nutrition, metabolism, and development symptoms Status: Acute Plan: Diet: regular diet as tolerated Electrolytes: Unremarkable, continue to monitor Fluids: NS at 100 DVT prophylaxis: SCDs GI prophylaxis: None (Kika Sweeney MD R2) Kika Sweeney MD R2 Mar 12, 2016 10:48 Jah Swenson MD Mar 12, 2016 11:08
--- NOTE | 2016-03-12 10:59 | HHI.PR ---
Subjective Subjective Notes Resting in bed Pain essentially gone Able to eat Objective Vitals/I&O Vital Signs Date Time Temp Pulse Resp B/P Pulse Ox O2 Delivery O2 Flow Rate FiO2 03/12/16 08:00 98.0 48 16 144/89 99 03/10/16 15:20 Room Air Labs Laboratory Tests Test 03/12/16 04:49 White Blood Count 9.2 Red Blood Count 4.39 Hemoglobin 12.9 Hematocrit 36.3 Mean Corpuscular Volume 82.8 Mean Corpuscular Hemoglobin 29.3 Mean Corpuscular Hemoglobin 35.4 Concent Red Cell Distribution Width 12.8 Platelet Count 251 Mean Platelet Volume 7.8 Neutrophils (%) (Auto) 59.6 Lymphocytes (%) (Auto) 31.0 Monocytes (%) (Auto) 7.8 Eosinophils (%) (Auto) 1.2 Basophils (%) (Auto) 0.4 Neutrophils # (Auto) 5.5 Lymphocytes # (Auto) 2.9 Monocytes # (Auto) 0.7 Eosinophils # (Auto) 0.1 Basophils # (Auto) 0.0 CBC Comment DIFF FINAL Differential Comment Sodium Level 142 Potassium Level 4.1 Chloride Level 108 Carbon Dioxide Level 25.5 Anion Gap 9 Blood Urea Nitrogen 3 Creatinine 0.77 Estimat Glomerular Filtration 93 Rate Random Glucose 101 Calcium Level 9.0 Total Bilirubin 0.6 Aspartate Amino Transf 49 (AST/SGOT) Alanine Aminotransferase 82 (ALT/SGPT) Alkaline Phosphatase 113 Total Protein 7.1 Albumin 3.0 Cardiovascular: Regular Lungs: Clear Abdomen: Other (old mild tenderness across lower abdomen with palpation ) Extremities: No edema A/P Assessment and Plan 21 year old female with abdominal pain; ?? etiology; unlikely appendicitis -Tolerating regular diet -Agree with trial of antibiotics per Family Medicine -No acute surgical interventions planned -Okay to [place] home from [place] standpoint Attending Statement The exam, history, and the medical decision-making described in the above note were completed with the assistance of the mid-level provider. I reviewed and agree with the findings presented. I attest that I had a [id number] encounter with the patient on the same day, and personally performed and documented my assessment and findings in the medical record. Abdominal exam non-surgical, no LRQ pain d/w patient, no surgical intervention at this time Naila Garcia Mar 12, 2016 10:59 Bryan Erickson MD Apr 20, 2016 00:04
[2016-03-12 12:56] VITALS: BP 144/96; PULSE 52; RESP 16; TEMP 98.4; O2SAT 99
--- NOTE | 2016-03-12 13:14 | HHI.DS ---
Discharge Summary Admission Date Mar 10, 2016 at 13:50 Discharge Date: Mar 12, 2016 Admitting Diagnosis abdominal pain (1) PID (acute pelvic inflammatory disease) Plan: Acute onset suprapubic abdominal pain that has significantly improved since admission with the addition of antibiotic treatment. Symptoms likely due to PID rather than appendicitis or ruptured cyst. There was some slight adnexal tenderness but no cervical motion tenderness. -UA negative, GC and Chlamydia negative, wet prep negative -CMP unremarkable with exception of a slightly elevated liver enzymes. * repeat CMP improved Surgery consulted: appreciate recommendations. * closely monitor. No surgical intervention at this time Imaging: * Pelvic US: Physiologic free fluid predominantly in the right adnexal region. Otherwise negative * Abdominal CT: Mild prominence of the appendix without inflammatory changes. Appendicitis is thought to be less likely. No clear etiology of abdominal pain. Medications: * Cefotoxitin 2 g IV q6 hrs, doxycycline 100 mg PO BID, will discharge on metronidazole and doxycycline. (Counseled about medication side effects) * Toradol * [place] 5's (2) Nutrition, metabolism, and development symptoms Plan: Diet: regular diet as tolerated Electrolytes: Unremarkable, continue to monitor Fluids: NS at 100 DVT prophylaxis: SCDs GI prophylaxis: None Consultants General Surgery Brief History Patient is a 21yo female who presented here today for lower abdominal pain. Symptoms started yesterday morning on her inner thighs and felt like soreness that then progressed to lower abdominal pain that was sharp. Worsened with movement and associated with pressure. She has never experience an episode like this. Pain is always present. No associated nausea/vomiting, fever/chills , dysuria, dyspareunia, vaginal discharge, vaginal bleeding, vaginal itchiness. Denies a concern for STD. She does endorse feeling hungry. CBC/BMP: 03/12/16 0449 03/12/16 0449 Significant Findings Laboratory Tests Test 03/10/16 03/11/16 03/12/16 09:20 04:16 04:49 Urine Turbidity CLOUDY (CLEAR) Urine Leukocyte Esterase TRACE (NEG) Estimat Glomerular Filtration 85 ML/MIN (>89) Rate Aspartate Amino Transf 58 U/L (15-37) 49 U/L (15-37) (AST/SGOT) Alanine Aminotransferase 114 U/L (10-53) 77 U/L (10-53) 82 U/L (10-53) (ALT/SGPT) Monocytes (%) (Auto) 8.6 % (0.0-8.0) Blood Urea Nitrogen 6 MG/DL (7-18) 3 MG/DL (7-18) Calcium Level 7.9 MG/DL (8.5-10.1) Total Protein 6.3 GM/DL (6.4-8.2) Albumin 2.8 GM/DL 3.0 GM/DL (3.4-5.0) (3.4-5.0) Chloride Level 108 MEQ/L (98-107) Imaging Last Impressions Abdomen/Pelvis CT 03/10/16 0906 Signed Impressions: Service Date/Time: Thursday, March 10, 2016 10:01 - CONCLUSION: 1. Mild prominence of the appendix without inflammatory changes. Appendicitis is thought to be less likely. 2. I do not see an etiology for the patient's abdominal pain. Wali Cancino MD FACR Abdomen/Pelvis/Transvag US 03/10/16 0000 Signed Impressions: Service Date/Time: Thursday, March 10, 2016 10:51 - CONCLUSION: 1. Physiologic free fluid predominantly in the right adnexal region. 2. Otherwise negative. Javi Winston MD PE at Discharge GEN: Well-developed, well-nourished patient. No acute distress. CV: Regular rate and rhythm without obvious murmurs LUNGS: Clear to auscultation bilaterally. Normal respiratory effort. No wheezes , rales, rhonchi. GI: Soft, very mild suprapubic tenderness. No guarding or rebound tenderness. Nondistended. No palpable masses. EXT: No edema. No calf tenderness. NEURO/PSYCH: Awake, alert. Appropriate insight and judgment. Normal speech Hospital Course Patient is a 21-year-old female who presented with suprapubic abdominal pain. Not associated with any other symptoms. Pelvic ultrasound was unremarkable. CT abdomen showed slightly dilated appendix but without inflammatory changes. Due to continued abdominal pain, we suspected that this was due to PID. However GC and chlamydia were negative. Pelvic exam was negative for cervical motion tenderness but there was some mild adnexal tenderness. Patient was treated with doxycycline and cefoxitin with good improvement in symptoms. Patient discharged in stable condition with metronidazole and doxy [id number]. Pt Condition on Discharge: Stable Discharge Disposition: Discharge Home Discharge Instructions DIET: Follow Instructions for: As Tolerated, No Restrictions Activities you can perform: Regular-No Restrictions Follow up Referrals: PCP Follow-up - 1 Week New Medications: Metronidazole (Metronidazole) 500 Mg Tab 500 MG PO BID Infection #28 Ref 0 TAB Doxycycline Hyclate (Doxycycline Hyclate) 100 Mg Cap 100 MG PO BID #28 CAP Discontinued Medications: Tramadol (Tramadol) 50 Mg Tab 50 MG PO Q6H PRN PAIN Days 10 Ref 0 TAB Kika Sweeney MD R2 Mar 12, 2016 13:14
== END 2016-03-12 13:24 | disposition home or self-care (01) ==
LOC: NEPE 08:51 → NEDA 13:50 → NEPGCP 17:23
PROVIDERS: ADMIT Family Medicine; ATTEND Family Medicine
DX: N73.0 Acute parametritis and pelvic cellulitis (principal); F17.210 Nicotine dependence, cigarettes, uncomplicated
CPT/HCPCS: 74177; 76830; 76856; 80048; 80053; 80076; 81001; 83690; 84703; 85025; 87210; 87491; 87591; 93975; 96361; 96374; 96375; 99285; G0378; J0694; J1170; J1885; J2270; J2405; J7030; Q9967

== ENCOUNTER 2018-04-15 18:28 | Inpatient (IN) ==
[2018-04-15] MEDS ORDERED: Acetaminophen 325 MG Tablet PO ONE (19:09)
--- NOTE | 2018-04-15 19:14 | XR ---
EXAM DATE: 04/15/2018 7:11 PM EST AGE/SEX: 23 years / Female INDICATIONS: Overdose. CLINICAL DATA: This is the patient's initial encounter. Patient reports that signs and symptoms have been present for 1 day and indicates a pain score of 0/10. MEDICAL/SURGICAL HISTORY: None. None. COMPARISON: No prior exams available for comparison. FINDINGS: Single AP view the chest. The lungs are clear. Cardiomediastinal silhouette within normal limits. No evidence of pleural effusion or pneumothorax. CONCLUSION: No acute cardiopulmonary disease identified. Electronically signed by: Tom Quick MD Board Certified Radiologist 04/15/2018 7:13 PM EST
[2018-04-15] MEDS ORDERED: Sod Chloride 0.9% Inj 1,000 ML IV.SIG SCH (19:15)
--- NOTE | 2018-04-15 19:39 | ED ---
HPI General Chief Complaint: Overdose Stated Complaint: Poss OD Time Seen by Provider: 04/15/18 18:44 Source: patient and EMS Mode of arrival: EMS Limitations: no limitations History of Present Illness HPI Narrative: Patient is a 23-year-old female, past medical history significant for previous drug abuse though states she had not used heroin for several years until today. She came in as a heroin overdose and postcode. Her report she was in a bathroom at a gas station when the inventory control clerk noticed that she been gone for a long period of time. Bystander kicked down the door and found her to be apneic and pulseless at which time he started CPR. He did CPR for approximately 2-3 minutes prior to EMS arrival. On EMS arrival she was still apneic and pulseless at which time CPR was continued and she was given 2 mg Narcan IM in addition to being bagged with oxygen. With this combination she did regain a pulse and become responsive again. On arrival here she is complaining of a slight headache but has no chest pain, shortness of breath, abdominal pain, fever, chills. complaint: Reports accidental overdose Intent: other How Overdose Was Discovered: other Context: Accidental Overdose: wanted to get high Treatments Prior to Arrival: oxygen, narcan and other Related Data Home Medications Medication Instructions Recorded Confirmed No Known Home Medications 04/15/18 04/15/18 Allergies Allergy/AdvReac Type Severity Reaction Status Date / Time No Known Allergies Allergy Verified 12/14/17 15:49 Review of Systems ROS: all other systems reviewed are negative [facility] Medical History Medical History Patient denies medical problems (Acute) Surgical History Surgical History H/O section (Acute) Social History Social History Substance History: Active Abuse Second Hand Smoke Exposure: Yes Smoking Status: Current every day smoker Tobacco Type: Cigarettes How Often Do You Have a Drink Containing Alcohol: Monthly or less Recent Travel in [facility] within the Last 8 Weeks: No Recent Out of Country Travel within the Last 8 Weeks: No Substance Abuse Detail Heroin: Substance Use Status: Active Substance Abuse Comment: patient reports being clean for 2 years prior to today Immunization History Tetanus Immunization: Unsure Exam Narrative Exam Narrative: GENERAL: Tearful young female in no acute respiratory distress SKIN: Focused skin assessment warm/dry. Track gregg. HEAD: Atraumatic. Normocephalic. EYES: Pupils equal and round. No scleral icterus. No injection or drainage. ENT: No nasal bleeding or discharge. Mucous membranes pink and moist. NECK: Trachea midline. No JVD. CARDIOVASCULAR: Regular rate and rhythm. No murmur appreciated. Intact and equal peripheral pulses. RESPIRATORY: No accessory muscle use. Clear to auscultation. Breath sounds equal bilaterally. GASTROINTESTINAL: Abdomen soft, non-tender, nondistended. Hepatic and splenic margins not palpable. MUSCULOSKELETAL: No obvious deformities. No clubbing. No cyanosis. No edema. NEUROLOGICAL: Awake and alert. No obvious cranial nerve deficits. Motor grossly within normal limits. Normal sensation. No ataxia. Normal speech. PSYCHIATRIC: Appropriate mood and affect; insight and judgment normal. She denies SI, HI. Course Initial Documented Vital Signs Temperature 99.0 F 04/15/18 18:41 Pulse Rate 114 H 04/15/18 18:41 Respiratory Rate 20 04/15/18 18:41 Blood Pressure 134/82 04/15/18 18:41 Pulse Oximetry 95 04/15/18 18:41 Last Documented Vital Signs Temperature 99.0 F 04/15/18 18:41 Pulse Rate 97 H 04/15/18 19:00 Respiratory Rate 18 04/15/18 19:00 Blood Pressure 123/70 04/15/18 19:00 Pulse Oximetry 95 04/15/18 19:00 Medical Decision Making MDM Narrative Medical decision making narrative: A 23-year-old female who presents post cardiac arrest after receiving Narcan and oxygen with CPR for approximately 6 minutes. She arrives GCS 15 and neurologically intact. She has been hemodynamically stable in the emergency department. EKG and labs are relatively unremarkable. CT of the head and neck were also unremarkable. She has been observed in the emergency department for approximately 2 hours without any repeat Narcan doses necessary. I initially spoke with Dr. Veras, hospitalist on-call, whom asked that I speak with the regulatory product manager first. I spoke with Dr. Lindsay, regulatory product manager on-call, who stated that he thought she could go to the floor with the hospitalist. I then spoke with Dr. Veras hospitalist on-call, who agreed to the admission. Medical Screen Exam Complete: Yes Emergency Medical Condition: Yes Differential Diagnosis Differential Diagnosis: Differential diagnosis includes but is not limited to hypoxia, overdose, dysrhythmia, intracranial injury. Medical Records Medical records reviewed: Yes I reviewed the patient's medical records. Lab Data Lab results reviewed: Yes I reviewed the patient's lab results. Result diagrams: 04/15/18 19:05 04/15/18 19:05 POC Results POC Urine Results Negative Lab Results 04/15/18 04/15/18 04/15/18 Range/Units 19:05 19:05 19:45 WBC 5.9 (4.0-11.0) th/mm3 RBC 4.82 (4.00-5.30) mil/mm3 Hgb 13.1 (11.6-15.3) gm/dL Hct 39.4 (35.0-46.0) % MCV 81.8 (80.0-100.0) fL MCH 27.3 (27.0-34.0) pg MCHC 33.4 (32.0-36.0) % RDW 16.5 (11.6-17.2) % Plt Count 139 L (150-450) th/mm3 MPV 7.9 (7.0-11.0) fL Neut % (Auto) 79.8 H (16.0-70.0) % Lymph % (Auto) 16.4 (9.0-44.0) % [place] % (Auto) 1.6 (0.0-8.0) % Eos % (Auto) 1.7 (0.0-4.0) % Baso % (Auto) 0.5 (0.0-2.0) % Neut # (Auto) 4.7 (1.8-7.7) th/mm3 Lymph # (Auto) 1.0 (1.0-4.8) th/mm3 [place] # (Auto) 0.1 (0.0-0.9) th/mm3 Eos # (Auto) 0.1 (0.0-0.4) th/mm3 Baso # (Auto) 0.0 (0.0-0.2) th/mm3 WBC Differential . Differential Comment Auto diff final Sodium 143 (136-145) meq/L Potassium 4.4 (3.5-5.1) meq/L Chloride 109 H (98-107) meq/L Carbon Dioxide 26.7 (21.0-32.0) meq/L Anion Gap 7 (5-15) meq/L BUN 15 (7-18) mg/dL Creatinine 0.87 (0.50-1.00) mg/dL Estimated GFR 79 L (>89) mL/min Random Glucose 68 L (74-106) mg/dL Calcium 8.5 (8.5-10.1) mg/dL Magnesium 1.9 (1.5-2.5) mg/dL Total Bilirubin 0.5 (0.2-1.0) mg/dL AST 46 H (15-37) U/L ALT 66 H (10-53) U/L Alkaline Phosphatase 124 H (45-117) U/L Troponin I Less than 0.02 L (0.02-0.05) ng/mL Total Protein 6.9 (6.4-8.2) g/dL Albumin 2.7 L (3.4-5.0) g/dL Urine Color Yellow (Yellw/Straw) Urine Clarity Hazy H (Clear) Urine pH 6.0 (5.0-8.5) Ur Specific [place] 1.015 (1.002-1.035) Urine Protein Negative (Neg-Trace) mg/dL Urine Glucose (UA) Negative (Negative) mg/dL Urine Ketones Negative (Negative) mg/dL Urine Occult Blood Negative (Negative) Urine Nitrate Negative (Negative) Urine Bilirubin Negative (Negative) Urine Urobilinogen 1.0 (Less than 2) mg/dL Ur Leukocyte Esterase Small H (Negative) Urine WBC 13 H (0-5) /hpf Ur Squamous Epith Cells 1 (0-5) /hpf Hyaline Casts 35 (0-3) /lpf Urine Mucus Few H (Occasional) /lpf Micro UA Comment Culture indicated Ur Microscopic Review Not Reportable Urine Culture Comments Culture indicated Imaging Data Attestation: I personally reviewed and interpreted this imaging study as follows : Radiologist's impression: Cervical Spine CT 04/15/18 18:45 CONCLUSION: No evidence fracture. Chest X-Ray 04/15/18 18:45 CONCLUSION: No acute cardiopulmonary disease identified. Head CT 04/15/18 18:45 CONCLUSION: 1. Negative for acute process . . ECG Data EKG Prior to Arrival: No Attestation: I personally reviewed and interpreted this ECG as follows: (Sinus rhythm at a rate of [address] or T wave changes.) Discharge Plan Discharge Disposition Patient Disposition: ED Admit(ED Internal Use Only) Discharge Condition Condition: Fair Discharge Order Discharge Orders: ED Use Only Admit Order (Routine); Ordered 04/15/18 Ordered By: Kelly Gonzales Discharge Details Diagnosis: Cardiac arrest, Heroin overdose, CHI (closed head injury) Physicians Team ED Provider: Kelly Gonzales Primary Care Provider: Primary Care Christin Henao Attending Provider: Gali Veras Discharge Interventions Interventions: Vital Signs Last Done: 04/15/18 19:00 Status ED Status: Admitted Observation Patient
[2018-04-15 19:40] LABS: Baso % (Auto) 0.5 % (0.0-2.0); Eos # (Auto) 0.1 th/mm3 (0.0-0.4); Eos % (Auto) 1.7 % (0.0-4.0); Hematocrit 39.4 % (35.0-46.0); Hemoglobin 13.1 gm/dL (11.6-15.3); Lymph % (Auto) 16.4 % (9.0-44.0); Mean Corpuscular HGB Conc 33.4 % (32.0-36.0); Mean Corpuscular Hemoglobin 27.3 pg (27.0-34.0); Mean Corpuscular Volume 81.8 fL (80.0-100.0); Mean Platelet Volume 7.9 fL (7.0-11.0); Mono # (Auto) 0.1 th/mm3 (0.0-0.9); Mono % (Auto) 1.6 % (0.0-8.0); Neut # (Auto) 4.7 th/mm3 (1.8-7.7); Neut % (Auto) 79.8 % (16.0-70.0); Platelet Count 139 th/mm3 (150-450); Red Blood Count 4.82 mil/mm3 (4.00-5.30); Red Cell Distribution Width 16.5 % (11.6-17.2); White Blood Count 5.9 th/mm3 (4.0-11.0)
[2018-04-15 19:58] LABS: Albumin 2.7 g/dL (3.4-5.0); Anion Gap 7 meq/L (5-15); Blood Urea Nitrogen 15 mg/dL (7-18); Calcium 8.5 mg/dL (8.5-10.1); Carbon Dioxide 26.7 meq/L (21.0-32.0); Chloride 109 meq/L (98-107); Glomerular Filtration Rate 79 mL/min (>89); Glucose,Random 68 mg/dL (74-106); Magnesium 1.9 mg/dL (1.5-2.5); Potassium 4.4 meq/L (3.5-5.1); Sodium 143 meq/L (136-145)
[2018-04-15 19:59] LABS: Alanine Aminotransferase 66 U/L (10-53)
[2018-04-15 20:03] LABS: Alkaline Phosphatase 124 U/L (45-117); Aspartate Aminotransferase 46 U/L (15-37); Total Protein 6.9 g/dL (6.4-8.2)
--- NOTE | 2018-04-15 20:14 | CT ---
EXAM DATE: 04/15/2018 8:12 PM EST AGE/SEX: 23 years / Female INDICATIONS: Trauma. Head injury. Found unresponsive. CPR performed for 3 minutes. CLINICAL DATA: This is the patient's initial encounter. Patient reports that signs and symptoms have been present for 1 day and indicates a pain score of 2/10. MEDICAL/SURGICAL HISTORY: None. section. RADIATION DOSE: 29.92 CTDI (mGy) COMPARISON: No prior exams available for comparison. TECHNIQUE: CT of the head without contrast. Using automated exposure control and adjustment of the mA and/or kV according to patient size, radiation dose was kept as low as reasonably achievable to ob tain optimal diagnostic quality images. DICOM format image data is available electronically for revi ew and comparison. FINDINGS: Cerebrum: The ventricles are normal for age. No evidence of midline shift, mass lesion, hemorrhage or acute infarction. No extraaxial fluid collections are seen. Posterior Fossa: The cerebellum and brainstem are intact. The 4th ventricle is midline. The cerebe llopontine angle is unremarkable. Extracranial: The visualized portion of the orbits is intact. Skull: The calvaria is intact. No evidence of skull fracture. CONCLUSION: 1. Negative for acute process . . Electronically signed by: Wali Cancino MD Board Certified Radiologist 04/15/2018 8:13 PM EST
--- NOTE | 2018-04-15 20:17 | CT ---
EXAM DATE: 04/15/2018 8:13 PM EST AGE/SEX: 23 years / Female INDICATIONS: Trauma. CLINICAL DATA: This is the patient's initial encounter. Patient reports that signs and symptoms have been present for 1 day and indicates a pain score of 2/10. MEDICAL/SURGICAL HISTORY: None. section. RADIATION DOSE: 17.96 CTDI (mGy) COMPARISON: No prior exams available for comparison. TECHNIQUE: Contiguous axial images were obtained using helical multirow detector technique. The vol umetric data was post-processed with multiplanar reconstruction in oblique axial, sagittal, and coron al planes. Using automated exposure control and adjustment of the mA and/or kV according to patient s ize, radiation dose was kept as low as reasonably achievable to obtain optimal diagnostic quality ramo ges. DICOM format image data is available electronically for review and comparison. FINDINGS: Vertebrae: Normal vertebral body height. Alignment: Normal. No subluxation. C2-3: The bony spinal canal is normal in size. No evidence of disc bulge or herniation. The neural foramina are bilaterally patent. C3-4: The bony spinal canal is normal in size. No evidence of disc bulge or herniation. The neural foramina are bilaterally patent. C4-5: The bony spinal canal is normal in size. No evidence of disc bulge or herniation. The neural foramina are bilaterally patent. C5-6: The bony spinal canal is normal in size. No evidence of disc bulge or herniation. The neural foramina are bilaterally patent. C6-7: The bony spinal canal is normal in size. No evidence of disc bulge or herniation. The neural foramina are bilaterally patent. C7-T1: The bony spinal canal is normal in size. No evidence of disc bulge or herniation. The neura l foramina are bilaterally patent. CONCLUSION: No evidence fracture. Electronically signed by: Tom Quick MD Board Certified Radiologist 04/15/2018 8:16 PM EST
[2018-04-15 20:20] LABS: Bilirubin,Urine Negative (Negative); Clarity,Urine Hazy (Clear); Color,Urine Yellow (Yellw/Straw); Glucose,Urine (UA) Negative (Negative); Hyaline Casts,Urine 35 /lpf (0-3); Leukocyte Esterase,Urine Small (Negative); Mucus,Urine Few /lpf (Occasional); Nitrite,Urine Negative (Negative); Specific Gravity,Urine 1.015 (1.002-1.035); Squamous Epithelial Cell,Urine 1 /hpf (0-5)
[2018-04-15] MEDS ORDERED: Bisacodyl 10 MG Supp RECTAL PRN (20:45)
[2018-04-15] MEDS ORDERED: Acetaminophen 325 MG Tablet PO PRN (20:45)
--- NOTE | 2018-04-15 20:47 | P.HPIM ---
History of Present Illness Primary Care Physician: No Primary Care Physician History of Present Illness: This is a 23-year-old female with a PMH of IVDU who was brought to the ER by EMS after Cardiac Arrest w/ Heroin Overdose. Pt currently awake, alert, oriented, ambulating independently. States she was sober for several years, however relapsed on Heroin. Was found on bathroom floor of gas station, pulseless and apneic, CPR initiated for 2min by bystander , EMS continued CPR and give Narcan w/ immediate response. Pt with no complaints at this time. On arrival, BP 134/82, HR 114, O2 sat 95% on RA, Temp 99.0. BC essentially unremarkable except for platelets 139. Chemistry essentially unremarkable. Troponin negative. UA positive for UTI. CT Head with no acute findings. CXR negative. CT C-spine negative. Diagnosis (1) Heroin overdose: (2) UTI (urinary tract infection): (3) Cardiac arrest: Review of Systems PAST FAMILY HISTORY: Reviewed. No h/o DM or CAD Review of Systems: all other systems reviewed are negative [facility] Medical History Medical History Patient denies medical problems (Acute) Surgical History Surgical History H/O section (Acute) Social History Social History Substance History: Active Abuse Second Hand Smoke Exposure: Yes Smoking Status: Current every day smoker Tobacco Type: Cigarettes How Often Do You Have a Drink Containing Alcohol: Monthly or less Recent Travel in [facility] within the Last 8 Weeks: No Recent Out of Country Travel within the Last 8 Weeks: No Substance Abuse Detail Heroin: Substance Use Status: Active Substance Abuse Comment: patient reports being clean for 2 years prior to today Immunization History Tetanus Immunization: Unsure Medications and Allergies Allergies Allergy/AdvReac Type Severity Reaction Status Date / Time No Known Allergies Allergy Verified 12/14/17 15:49 Home Medications Medication Instructions Recorded Confirmed Type No Known Home Medications 04/15/18 04/15/18 History Active Medications: Active Medications Sodium Chloride (Ns Flush) 2 ml IV.FLUSH PRN PRN PRN Reason: FLUSH AFTER USING IV ACCESS Physical Exam Vital signs: Vital Signs 04/15/18 18:41 04/15/18 18:48 04/15/18 19:00 Temperature 99.0 F Pulse Rate 114 H 103 H 97 H Respiratory Rate 20 18 Blood Pressure 134/82 123/70 Pulse Oximetry 95 95 95 Intake & Output 04/15/18 04/15/18 04/16/18 06:59 18:59 06:59 Weight 72.575 kg Narrative: PE: GENERAL: Very pleasant young white female in no acute distress,, seen up and ambulating. SKIN: Focused skin assessment warm and dry. HEENT: PERRLA, EOMI. No scleral icterus or conjunctival pallor. No lid lag or facial droop. CARDIOVASCULAR: Regular rate and rhythm. No obvious murmurs to auscultation. No chest tenderness to palpation. RESPIRATORY: No obvious rhonchi or wheezing. Clear to auscultation. Breath sounds equal bilaterally. GASTROINTESTINAL: Abdomen soft, non-tender, nondistended. BS normal. MUSCULOSKELETAL: Extremities without clubbing, cyanosis, or edema. No obvious deformities. NEUROLOGICAL: Awake, alert and oriented x4. No focal neurologic deficits. Moving both upper and lower extremities spontaneously. PSYCHIATRIC: Appropriate mood and affect. Insight and judgment normal. Results Labs CBC & Chem 7: 04/15/18 19:05 04/15/18 19:05 Imaging Impressions Cervical Spine CT 04/15/18 18:45 CONCLUSION: No evidence fracture. Chest X-Ray 04/15/18 18:45 CONCLUSION: No acute cardiopulmonary disease identified. Head CT 04/15/18 18:45 CONCLUSION: 1. Negative for acute process . . Caprini VTE Risk Assessment Caprini VTE Risk Assessment: No/Low Risk (score <= 1) Caprini Risk Assessment Model: Point Value = 1 Point Value = 2 Point Value = 3 Point Value = 5 Age 41-60 Minor surgery BMI > 25 kg/m2 Swollen legs Varicose veins or History of unexplained or recurrent spontaneous Oral contraceptives or hormone replacement Sepsis (< 1 month) Serious lung disease, including pneumonia (< 1 month) Abnormal pulmonary function Acute myocardial infarction Congestive heart failure (< 1 month) History of inflammatory bowel disease Medical patient at bed rest Age 61-74 Arthroscopic surgery Major open surgery (> 45 min) Laparoscopic surgery (> 45 min) Malignancy Confined to bed (> 72 hours) Immobilizing plaster cast Central venous access Age >= 75 History of VTE Family history of VTE Factor V Leiden Prothrombin [id number] Lupus anticoagulant Anticardiolipin antibodies Elevated serum homocysteine Heparin-induced thrombocytopenia Other congenital or acquired thrombophilia Stroke (< 1 month) Elective arthroplasty Hip, pelvis, or leg fracture Acute spinal cord injury (< 1 month) Prophylaxis Regimen: Total Risk Factor Score Risk Level Prophylaxis Regimen 0-1 Low Early ambulation 2 Moderate Order ONE of the following: *Sequential Compression Device (SCD) *Heparin 5000 units SQ BID 3-4 Higher Order ONE of the following medications: *Heparin 5000 units SQ TID *Enoxaparin/Lovenox 40 mg SQ daily (WT < 150 kg, CrCl > 30 mL/min) *Enoxaparin/Lovenox 30 mg SQ daily (WT < 150 kg, CrCl > 10-29 mL/min) *Enoxaparin/Lovenox 30 mg SQ BID (WT < 150 kg, CrCl > 30 mL/min) AND/OR *Sequential Compression Device (SCD) 5 or more Highest Order ONE of the following medications: *Heparin 5000 units SQ TID (Preferred with Epidurals) *Enoxaparin/Lovenox 40 mg SQ daily (WT < 150 kg, CrCl > 30 mL/min) *Enoxaparin/Lovenox 30 mg SQ daily (WT < 150 kg, CrCl > 10-29 mL/min) *Enoxaparin/Lovenox 30 mg SQ BID (WT < 150 kg, CrCl > 30 mL/min) AND *Sequential Compression Device (SCD) Assessment and Plan (1) Heroin overdose: Code(s): T40.1X1A - Poisoning by heroin, accidental (unintentional), initial encounter Status: Acute (2) UTI (urinary tract infection): Code(s): N39.0 - Urinary tract infection, site not specified Status: Acute (3) Cardiac arrest: Code(s): I46.9 - Cardiac arrest, cause unspecified Status: Acute Plan A/P: 1. Cardiac Arrest: secondary to Heroin Overdose, CPR initiated by Bystanders for approx 2min, CPR continued by EMS, then given Narcan w/ immediate response. Back to baseline, awake, alert, oriented x4, ambulating independently. CT Head/C-Spine w/ no acute findings. Pt will be admitted for observation in light of cardiac arrest. 2. Heroin Overdose: admits to Heroin use today, will monitor closely. 3. UTI: U/a w/ UTI, continue IV Abx, Follow up urine cultures, IVF, monitor I/ O. 4. DVT Prophylaxis: SCD/Teds 5. Social work for d/c planning as needed. 6. Case discussed w/ ER physician at length, labs/records/imaging reviewed by me _ (1) Heroin overdose Qualifiers: Encounter type: Injury intent:
[2018-04-15] MEDS: Sod Chloride 0.9% Inj 1,000 ML IV.CONT SCH (22:00)
[2018-04-15] MEDS: Senna/Docusate Sodium 8.6/50 MG Tablet PO SCH (23:39)
[2018-04-16] MEDS ORDERED: Sodium Chlor 0.9% Inj 500 ML IV.SIG SCH (04:51)
[2018-04-16] MEDS: Sod Chloride 0.9% Inj 1,000 ML IV.CONT SCH ×3 (06:07→17:19)
--- NOTE | 2018-04-16 06:56 | ECG ---
Date Performed: 04/15/2018 Time Performed: 19:16:06 PTAGE: 23 years EKG: Sinus rhythm NORMAL ECG PREVIOUS TRACING : 08/03/2017 21.41 No significant change from previous tracing noted. DOCTOR: Sahil Jimenez Interpretating Date/Time 04/16/2018 06:53:55
[2018-04-16 07:53] LABS: Baso # (Auto) 0.1 th/mm3 (0.0-0.2); Baso % (Auto) 0.5 % (0.0-2.0); Eos # (Auto) 0.2 th/mm3 (0.0-0.4); Eos % (Auto) 1.5 % (0.0-4.0); Hematocrit 34.9 % (35.0-46.0); Hemoglobin 11.6 gm/dL (11.6-15.3); Lymph # (Auto) 4.4 th/mm3 (1.0-4.8); Lymph % (Auto) 42.6 % (9.0-44.0); Mean Corpuscular HGB Conc 33.1 % (32.0-36.0); Mean Corpuscular Hemoglobin 27.4 pg (27.0-34.0); Mean Corpuscular Volume 82.8 fL (80.0-100.0); Mean Platelet Volume 8.7 fL (7.0-11.0); Mono # (Auto) 0.5 th/mm3 (0.0-0.9); Mono % (Auto) 5.1 % (0.0-8.0); Neut # (Auto) 5.2 th/mm3 (1.8-7.7); Neut % (Auto) 50.3 % (16.0-70.0); Platelet Count 140 th/mm3 (150-450); Red Blood Count 4.22 mil/mm3 (4.00-5.30); Red Cell Distribution Width 16.5 % (11.6-17.2); White Blood Count 10.3 th/mm3 (4.0-11.0)
[2018-04-16] MEDS ORDERED: Sod Chloride 0.9% Inj 1,000 ML IV.SIG SCH (08:22)
[2018-04-16 08:23] LABS: Albumin 2.3 g/dL (3.4-5.0); Anion Gap 7 meq/L (5-15); Aspartate Aminotransferase 43 U/L (15-37); Blood Urea Nitrogen 14 mg/dL (7-18); Calcium 7.8 mg/dL (8.5-10.1); Carbon Dioxide 23.9 meq/L (21.0-32.0); Chloride 110 meq/L (98-107); Glomerular Filtration Rate Greater Than 89 mL/min (>89); Glucose,Random 93 mg/dL (74-106); Potassium 3.9 meq/L (3.5-5.1); Sodium 141 meq/L (136-145)
[2018-04-16 08:26] LABS: Alanine Aminotransferase 53 U/L (10-53); Alkaline Phosphatase 95 U/L (45-117); Total Protein 5.8 g/dL (6.4-8.2)
[2018-04-16] MEDS: Senna/Docusate Sodium 8.6/50 MG Tablet PO SCH ×2 (08:54→21:23)
[2018-04-16 09:10] LABS: Lymphocytes 36 % (9-44); Monocytes 5 % (0-8)
[2018-04-16 09:11] LABS: Platelet Morphology Normal (Normal)
[2018-04-16] MEDS ORDERED: Fluconazole 100 MG Tablet PO ONE (09:46)
--- NOTE | 2018-04-16 09:47 | P.PNIM ---
Subjective Interval history: Follow-up for accidental IV heroin overdose status post CPR on scene. Patient reports feeling better today. She denies any headache, lightheadedness, dizziness, shortness of breath, or abdominal complaints. She reports her sternum feels sore from the CPR, worse with deep inspiration and palpation. She complains of some external vaginal pruritus and some white vaginal discharge. She states she is prone to yeast infections, especially on antibiotics. She is requesting medication for yeast infection. She denies any pelvic pain or foul odor. Blood pressure has continued to be low, requiring IV fluid boluses. Patient is tolerating oral intake. She has no other medical complaints at this time. Physical Exam Vital signs: Vital Signs 04/15/18 18:41 04/15/18 18:48 04/15/18 19:00 Temperature 99.0 F Pulse Rate 114 H 103 H 97 H Respiratory Rate 20 18 Blood Pressure 134/82 123/70 Pulse Oximetry 95 95 95 04/15/18 20:30 04/15/18 20:50 04/15/18 22:45 Temperature Pulse Rate 95 H 90 Respiratory Rate 18 16 16 Blood Pressure 91/48 L 105/54 L Pulse Oximetry 97 96 04/15/18 23:06 04/15/18 23:20 04/16/18 00:00 Temperature 98 F 97.6 F Pulse Rate 67 70 Respiratory Rate 16 12 Blood Pressure 87/50 L 96/70 L 94/54 L Pulse Oximetry 94 L 93 L 04/16/18 04:00 04/16/18 07:47 04/16/18 08:23 Temperature 97.7 F 97.4 F L Pulse Rate 60 53 L Respiratory Rate 16 16 Blood Pressure 88/70 L 82/44 L 85/46 L Pulse Oximetry 94 L 95 Intake & Output 04/15/18 04/16/18 04/16/18 18:59 06:59 18:59 Intake Total 3090 / 3090 71 / 71 Balance 3090 / 3090 71 / 71 Weight 72.575 kg 72.575 kg Intake: IV 2600 / 2600 NS Inj 1,000 ML @ 100 mls/hr IV 1000 / 1000 .CONT .Q10H DORIS Rx#:[id number] NS Inj 1,000 ML @ 1000 mls/hr 1000 / 1000 IV.SIG BOLUS DORIS Rx#:[id number] NS Inj 500 ML @ 1000 mls/hr IV. 500 / 500 SIG BOLUS DORIS Rx#:[id number] Rocephin Inj 1,000 MG In NS Inj 100 / 100 100 ML @ 200 mls/hr IV.SIG Q24H DORIS Rx#:[id number] Oral 490 / 490 Other Other: Other Intake Source Saline Solution # Voids 2 Date of Last Bowel Movement 04/15/18 04/15/18 Weight On Admission 72.575 kg Narrative: GENERAL: Well-nourished, well-developed pleasant young female patient in NAD. SKIN: Warm and dry. HEENT: Pupils equal and round. Mucous membranes slightly dry. CARDIOVASCULAR: Regular rate and rhythm. No murmur appreciated. Sternum mildly tender to palpation. RESPIRATORY: No accessory muscle use. Clear to auscultation. Breath sounds equal bilaterally. GASTROINTESTINAL: Abdomen soft, non-tender, nondistended. Normoactive bowel sounds x4. MUSCULOSKELETAL: No obvious deformities. Extremities without clubbing, cyanosis , or edema. NEUROLOGICAL: Awake and alert. No obvious cranial nerve deficits. Moving all extremities spontaneously. Normal speech. PSYCHIATRIC: Appropriate mood and affect; insight and judgment normal. Results Labs CBC & Chem 7: 04/16/18 06:20 04/16/18 06:20 Imaging Imaging: Impressions Cervical Spine CT 04/15/18 18:45 CONCLUSION: No evidence fracture. Chest X-Ray 04/15/18 18:45 CONCLUSION: No acute cardiopulmonary disease identified. Head CT 04/15/18 18:45 CONCLUSION: 1. Negative for acute process . . Assessment and Plan (1) Heroin overdose: Code(s): T40.1X1A - Poisoning by heroin, accidental (unintentional), initial encounter Status: Acute (2) UTI (urinary tract infection): Code(s): N39.0 - Urinary tract infection, site not specified Status: Acute (3) Cardiac arrest: Code(s): I46.9 - Cardiac arrest, cause unspecified Status: Acute Plan 23-year-old female with a PMH of IVDU who was brought to the ER by EMS after Cardiac Arrest w/ Heroin Overdose. Pt currently awake, alert, oriented, ambulating independently. States she was sober for several years, however relapsed on Heroin. Was found on bathroom floor of gas station, pulseless and apneic, CPR initiated for 2min by bystander, EMS continued CPR and give Narcan w / immediate response. Cardiac Arrest: secondary to Heroin Overdose, CPR initiated by Bystanders for approx 2min, CPR continued by EMS, then given Narcan w/ immediate response. -Back to baseline, awake, alert, oriented x4, ambulating independently. -CT Head/C-Spine w/ no acute findings. -Neuro checks -Resolved Hypotension: suspect secondary to dehydration and overdose. BP down to 82/44. 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 Vaginal Candidiasis: acute, patient reporting pruritus and white discharge, requesting medication for yeast infection -checked GC/Chlamydia PCR, negative -give diflucan 150mg x1 now DVT Prophylaxis: SCD/Teds Progress Note: Quality VTE Deep Vein Thrombosis/Pulmonary Embolism Present on Admission: No _ (1) Heroin overdose Qualifiers: Encounter type: Injury intent:
[2018-04-16] MEDS ORDERED: Naloxone Inj 0.4 MG/ML Vial IV.PUSH PRN (11:57)
[2018-04-16] MEDS: Acetaminophen 325 MG Tablet PO PRN ×2 (16:02→21:18)
[2018-04-17] MEDS: Sod Chloride 0.9% Inj 1,000 ML IV.CONT SCH (03:00)
[2018-04-17] MEDS: Acetaminophen 325 MG Tablet PO PRN (09:28)
[2018-04-17] MEDS: Senna/Docusate Sodium 8.6/50 MG Tablet PO SCH (09:29)
--- NOTE | 2018-04-17 10:54 | P.PNIM ---
Subjective Interval history: The pt was ambulating around her room. She wanted to go home. She says she will not use heroin again. She has no symptoms. Discussed with nursing at the bedside. Physical Exam Vital signs: Vital Signs 04/16/18 12:00 04/16/18 15:57 04/16/18 16:00 Temperature 98.1 F 98.0 F Pulse Rate 77 54 L 64 Respiratory Rate 16 16 Blood Pressure 90/53 L 97/53 L Pulse Oximetry 95 95 04/16/18 18:30 04/16/18 18:31 04/16/18 19:50 Temperature 97.9 F Pulse Rate 54 L 67 57 L Respiratory Rate 12 16 18 Blood Pressure 138/63 151/82 H 104/67 Pulse Oximetry 50 L 97 95 04/16/18 19:55 04/16/18 23:42 04/17/18 00:55 Temperature 97.9 F Pulse Rate 54 L 48 L 44 L Respiratory Rate 17 Blood Pressure 110/70 Pulse Oximetry 95 04/17/18 01:00 04/17/18 01:42 04/17/18 03:00 Temperature 97.4 F L Pulse Rate 60 50 L 48 L Respiratory Rate 16 Blood Pressure 150/92 H Pulse Oximetry 97 04/17/18 04:00 04/17/18 07:00 04/17/18 08:00 Temperature 97.7 F Pulse Rate 50 L 52 L 52 L Respiratory Rate 12 18 Blood Pressure 119/74 116/85 Pulse Oximetry 95 99 Intake & Output 04/16/18 04/17/18 04/17/18 18:59 06:59 18:59 Intake Total 2070 1310 / 1310 Output Total 600 / 600 Balance 2070 710 / 710 Weight 84.5 kg Intake: IV 1999 / 1999 1100 / 1100 NS Inj 1,000 ML @ 100 mls/hr IV 1000 / 1000 1000 / 1000 .CONT .Q10H DORIS Rx#:[id number] NS Inj 1,000 ML @ 1000 mls/hr 1000 / 1000 IV.SIG BOLUS DORIS Rx#:[id number] Rocephin Inj 1,000 MG In NS Inj 100 / 100 100 ML @ 200 mls/hr IV.SIG Q24H DORIS Rx#:[id number] Oral 210 / 210 Other 71 / 71 Output: Urine 300 / 300 Emesis 300 / 300 Other: Other Intake Source Saline Solution Date of Last Bowel Movement 04/15/18 04/16/18 04/17/18 # Bowel Movements 0 # Emeses 1 Narrative: GENERAL: Well-nourished, well-developed pleasant young female patient in NAD. SKIN: Warm and dry. HEENT: Pupils equal and round. Mucous membranes slightly dry. CARDIOVASCULAR: Regular rate and rhythm. No murmur appreciated. RESPIRATORY: No accessory muscle use. Clear to auscultation. Breath sounds equal bilaterally. GASTROINTESTINAL: Abdomen soft, non-tender, nondistended. Normoactive bowel sounds x4. MUSCULOSKELETAL: No obvious deformities. Extremities without clubbing, cyanosis , or edema. NEUROLOGICAL: Awake and alert. No obvious cranial nerve deficits. Moving all extremities spontaneously. Normal speech. Results Labs CBC & Chem 7: 04/16/18 06:20 04/16/18 06:20 Labs: Microbiology 04/15/18 19:45 Clean Catch Urine Urine Culture - Preliminary Immature growth - reincubate Assessment and Plan (1) Heroin overdose: Code(s): T40.1X1A - Poisoning by heroin, accidental (unintentional), initial encounter Status: Acute (2) UTI (urinary tract infection): Code(s): N39.0 - Urinary tract infection, site not specified Status: Acute (3) Cardiac arrest: Code(s): I46.9 - Cardiac arrest, cause unspecified Status: Acute Plan Cardiac arrest/heroin overdose 23-year-old female with a PMH of IVDU who was brought to the ER by EMS after Cardiac Arrest w/ Heroin Overdose. CPR initiated by Bystanders for approx 2min, CPR continued by EMS, then given Narcan w/ immediate response. Pt currently awake, alert, oriented, ambulating independently. States she was sober for several years, however relapsed on Heroin. CT head negative. EKG with sinus bj. 04/16 at 6:45pm the patient was found bradycardic, HR 30s on telemetry, unresponsive, aroused with sternal rub, given Narcan with good response, then subsequently AAO with stable vitals. Event occurred shortly after the patient had a visitor leave the room. -Instructed NO VISITORS. -Monitor on telemetry. -echo requested. -Neuro checks. -cessation instruction. Hypotension Suspect secondary to dehydration and overdose. BP down to 82/44. -resolved with IVFs. UTI U/a w/ ? UTI. -continue IV Abx with Rocephin. -Follow up urine cultures. Vaginal Candidiasis Patient reporting pruritus and white discharge, requesting medication for yeast infection. Checked GC/Chlamydia PCR, negative. -S/p Diflucan 150mg x1. DVT Prophylaxis: SCD/Teds Discharge Planning: Possible d/c home later today if HR, BP stable and echo without acute abnormality Progress Note: Quality VTE Deep Vein Thrombosis/Pulmonary Embolism Present on Admission: No _ (1) Heroin overdose Qualifiers: Encounter type: Injury intent:
[2018-04-17 11:54] LABS: Alanine Aminotransferase 95 U/L (10-53); Albumin 2.8 g/dL (3.4-5.0); Anion Gap 7 meq/L (5-15); Aspartate Aminotransferase 82 U/L (15-37); Blood Urea Nitrogen 11 mg/dL (7-18); Calcium 8.9 mg/dL (8.5-10.1); Carbon Dioxide 28.5 meq/L (21.0-32.0); Chloride 106 meq/L (98-107); Glomerular Filtration Rate Greater Than 89 mL/min (>89); Glucose,Random 88 mg/dL (74-106); Potassium 4.5 meq/L (3.5-5.1); Sodium 141 meq/L (136-145)
[2018-04-17 12:02] LABS: Alkaline Phosphatase 101 U/L (45-117); Total Protein 6.9 g/dL (6.4-8.2)
[2018-04-17 12:18] VITALS: RESP 20
--- NOTE | 2018-04-17 15:10 | ECHRPT ---
Indication: post cardiac arrest, overdose CONCLUSIONS Normal left ventricular size. Wall thickness is normal. The left ventricular systolic function is low normal with an estimated ejection fraction in the rang e of 50- 55%. Trace mitral valve regurgitation. There is trace tricuspid valve regurgitation. There is estimated mild pulmonary hypertension present ( 47 mmHg). BP: / HR: Rhythm: Technical Quality: FINDINGS LEFT VENTRICLE Normal left ventricular size. Wall thickness is normal. The left ventricular systolic function is low normal with an estimated ejection fraction in the rang e of 50- 55%. RIGHT VENTRICLE Normal right ventricular size and systolic function. LEFT ATRIUM The left atrial size is normal. RIGHT ATRIUM The right atrial size is normal. ATRIAL SEPTUM Normal atrial septal thickness without atrial level shunting by limited color doppler interrogation. AORTA The aortic root and proximal ascending aorta are normal in size on limited imaging. MITRAL VALVE Trace mitral valve regurgitation. AORTIC VALVE Trileaflet aortic valve. No aortic valve stenosis or regurgitation. TRICUSPID VALVE There is trace tricuspid valve regurgitation. There is estimated mild pulmonary hypertension present ( 47 mmHg). PULMONARY VALVE The pulmonary valve is not well visualized. VESSELS The inferior vena cava is normal in size. PERICARDIUM No pericardial effusion. Tono Mariano MD (Electronically Signed) Final Date:17 April 2018 15:09
[2018-04-17 15:19] VITALS: PULSE 55
[2018-04-17 16:16] VITALS: BP 128/78; TEMP 97.8; O2SAT 96
--- NOTE | 2018-04-17 21:27 | ECG ---
Date Performed: 04/16/2018 Time Performed: 12:15:39 PTAGE: 23 years EKG: SINUS BRADYCARDIA BORDERLINE ECG PREVIOUS TRACING : 04/15/2018 19.16 Compared to previous tracing, rate slower DOCTOR: Vinayak Diaz Interpretating Date/Time 04/17/2018 21:26:32
== END 2018-04-17 16:54 | disposition home or self-care (01) | DRG 917 ==
LOC: NEPE 18:28 → INTOOBSV 20:42 → NEDA 20:42 → NEPGCP 22:50 → HCVI 04-17 01:04
PROVIDERS: ADMIT Hospitalist; ATTEND Hospitalist
DX: N39.0 Urinary tract infection, site not specified; F17.210 Nicotine dependence, cigarettes, uncomplicated; F11.10 Opioid abuse, uncomplicated; B37.3 Candidiasis of vulva and vagina; I27.20 Pulmonary hypertension, unspecified; T40.1X1A Poisoning by heroin, accidental (unintentional), initial encounter; L29.2 Pruritus vulvae; I95.9 Hypotension, unspecified; I46.8 Cardiac arrest due to other underlying condition; E86.0 Dehydration
CPT/HCPCS: 70450; 71010; 71045; 72125; 80053; 81001; 82948; 82962; 83735; 84443; 84484; 84703; 85025; 87086; 87491; 87591; 90761; 93005; 93306; 96361; 96365; 99285; G0378; J0696; J2310; J2405; J7030; J7040